=== PATIENT | male | born 1945 | race Caucasian/White ===

== ENCOUNTER 2018-10-29 06:08 | Day surgery (SDC) | payer OTHER ==
[2018-10-28 16:22] VITALS: BMI 27.9
[2018-10-29] MEDS ORDERED: MIDAZOLAM HCL 2 MG/2 ML SINGLE DOSE VIAL ONE ×2 (06:55→08:35)
[2018-10-29] MEDS ORDERED: PROPOFOL 20 ML ONE ×5 (06:56→09:35)
[2018-10-29] MEDS ORDERED: SUCCINYLCHOLINE CHLORIDE 200 MG/10 ML VIAL ONE (07:04)
[2018-10-29] MEDS ORDERED: LIDOCAINE HCL/PF 2% SDV 5ML VIAL ONE ×2 (07:05→09:05)
[2018-10-29] MEDS ORDERED: SEVOFLURANE 250 ML BTL ONE (07:08)
[2018-10-29] MEDS ORDERED: DESFLURANE GAS 240 ML BOTTLE IH ONE (07:08)
[2018-10-29] MEDS ORDERED: TETRACAINE 0.5% OPHTH SOLN 2 ML BOTTLE ONE (07:20)
[2018-10-29] MEDS ORDERED: POVIDONE-IODINE 5% OPHTHALMIC PREP 30 ML SOLUTION ONE (07:20)
[2018-10-29] MEDS ORDERED: ERYTHROMYCIN 0.5% OPHTHALMIC OINTMENT 3.5 GM TUBE ONE (07:20)
[2018-10-29] MEDS ORDERED: LIDOCAINE 1%/EPI 1:100000 (20 ML MULTI DOSE VIAL) ONE (07:21)
[2018-10-29] MEDS ORDERED: BUPIVACAINE HCL/PF 0.5% (5MG/ML) 10 ML VIAL ONE (07:21)
[2018-10-29] MEDS ORDERED: oxyCODONE HCL 5 MG TABLET PO PRN ×2 (07:24)
[2018-10-29] MEDS ORDERED: ONDANSETRON 4 MG/2 ML VIAL IVPUSH PRN (07:24)
[2018-10-29] MEDS ORDERED: LACTATED RINGERS SOLUTION 1,000 ML IV SCH (07:30)
[2018-10-29] MEDS ORDERED: ceFAZolin SODIUM 1 GM VIAL ONE (08:00)
[2018-10-29] MEDS ORDERED: GLYCOPYRROLATE 0.2 MG/1 ML VIAL ONE (09:06)
[2018-10-29] MEDS ORDERED: PHENYLEPHRINE HCL 10 MG/1 ML SINGLE DOSE VIAL ONE (09:14)
[2018-10-29] MEDS ORDERED: oxyCODONE HCL 5 MG TABLET ONE (11:21)
[2018-10-29 11:29] VITALS: TEMP 98
[2018-10-29 12:30] VITALS: BP 132/78; PULSE 72
--- NOTE | 2018-10-29 13:34 | OP ---
DATE OF OPERATION: 10/29/2018 PREOPERATIVE DIAGNOSIS: Extensive defect left lower lid full thickness status post basal cell carcinoma excision. POSTOPERATIVE DIAGNOSIS: Extensive defect left lower lid full thickness status post basal cell carcinoma excision. Defect extending to and beyond the lateral canthus. PROCEDURES: 1. Exam under anesthesia. 2. Full-thickness tarsal graft from right upper lid to left lower lid. 3. Conjunctivoplasty left inferior fornix. 4. Full-thickness skin graft from the left postauricular region to the left lower lid. SURGEON: Mark Bansal MD ANESTHESIA: Local with sedation. COMPLICATIONS: None. ESTIMATED BLOOD LOSS: 5 mL. OPERATIVE REPORT: The patient was brought to the operating room and placed on the operating room table. Vital signs were monitored by Anthesthesia. Tetracaine was placed in both eyes. The wound was photographed following which the width of the defect was measured and found to be about 23 mm full thickness involving the margin leaving perhaps a 25% remnant in the left lower lid nasally with some irregularity. The patient was then given intravenous sedation after a time-out was performed, and a 50/50 mixture of 2% Xylocaine and 1:100,000 epinephrine and 0.5% Marcaine was injected subcutaneously in the lower lid down to the periosteum at the lateral canthus where the lateral canthus used to be, the nasal portion of the lower lid, the central portion of the upper lid subcutaneously and subconjunctivally on eversion, and the central portion of the right upper lid subcutaneously and subconjunctivally on eversion. Massage was gently applied for hemostasis. The patient was prepped and draped in the usual sterile fashion exposing both eyes. The following procedure was performed: The nasal portion of the eyelid was distracted laterally to measure the full width of the defect from the nasal eyelid to the periosteum was found to be 23 mm with caliper. A 4-0 silk tracking suture was passed from the central margin of the right upper lid and the lid was everted over Desmarres retractor and leaving 4 mm of intact tarsus throughout the eyelid. The 4 mm width of tarsus was then harvested for a width of 23 mm. This was dissected meticulously off of Cardozo muscle leaving Cardozo muscle intact, and it was removed from the right upper lid. The right upper lid was reverted. Incision was made through the nasal remnant of the left lower lid to para tarsus leaving all of the lashes anteriorly. The free tarsal graft, which was irrigated with antibiotics was then placed into the defect into the left lower lid where it was sutured with the conjunctival surface facing posteriorly against the globe to the nasal remnant of the left lower lid tarsus with 3 interrupted 7-0 Vicryl sutures creating a continuous posterior tarsal lamella. The conjunctiva was now dissected free of its overlying tissue and retractors and was allowed to mobilized, and this was meticulously sutured to the inferior edge of the conjunctiva with a running 6-0 chromic suture. Attempts were made to maximize blood supply to the free tarsal graft by attaching it with close sutures without undue tension. The temporal end of the graft was now sutured to the lateral lobe of the limb at the junction with the superior jackie of the lateral canthal tendon with a double-armed 5-0 Prolene passed through the temporal end of the tarsal graft and through the internal surface of the orbital rim. This was reinforced with two 6-0 Vicryl lasso sutures. The lateral canthal angle was reformed with a buried 7-0 Vicryl suture through the wound and laguerre line of the upper lid and then through the tarsus on its marginal edge and through the end of the tarsus of the tarsal graft, and this was tied creating a new lateral canthus. The Prolene was subsequently tied creating a new attachment to the orbital rim, and the graft template was then placed over this defect. The orbicularis skin muscle flap was contemplated; however, it was felt that there would be undue tension on the graft and, therefore, a template was placed over the defect in the left lower lid to measure the size of the graft needed. The helix of the left ear was then sutured to the preauricular skin with two interrupted 4-0 Vicryl sutures, and the graft was then placed over the postauricular reflection and marked with a marking pen using the template as a guide with the thinner anterior post auricular skin being used to align with the marginal skin edge. The graft site was injected with 2% Xylocaine and 1:100,000 epinephrine for a total of 2-3 mL and then harvested with a 15 blade in the perimeter and with Cathie scissors just underneath the dermis. Hemostasis was achieved with [place] needle, and the wound was closed with running, locking 3-0 chromic suture augmented with interrupted 3-0 chromic suture. The graft was then thinned of all subcutaneous tissue to help with the skin graft until ready tags were identified, and it was with an 11 blade. It was then sutured as the anterior lamella of the newly created left lower lid with the thin postauricular skin facing superiorly. It was meticulously tailored and sutured nasally and temporally with 7-0 Vicryl with 6-0 plain suture to repair at the lateral canthus and the medial attachment. The lobe inferiorly would be left free in the moment. The superior edge of the graft was sutured to the superior edge of the free tarsal graft recessing it slightly as it was sutured to prevent the skin from overriding at the margin, and this was run with a 6-0 chromic suture through the graft and then through the anterior surface of the tarsal graft exiting on the edge of the free tarsal graft not on the posterior surface throughout in a running fashion reattaching the superior edge and recreating the new lid margin. The graft was then trimmed as needed inferiorly conservatively leaving excess graft expecting contraction, and it was sutured to the inferior skin edge with plastic technique using a running and interrupted 6-0 plain suture. Erythromycin was placed in the eye and on the graft site and on the lateral canthus and in the right eye after antibiotic irrigation was performed and then a strip of Telfa over the dental roll tied over with a 4-0 silk suture in a loop fashion, which was passed below the graft laterally in the lateral lower lid and through the dental roll and then through the lateral upper lid and another bite through the lateral upper lid and then over the graft again over the dental roll again and down through the lower lid in a loop fashion creating gentle pressure from the dental roll on the graft overlying the reconstructed lid. A strip of Telfa and eye patch and fluff were placed over the eye to maintain gentle pressure on the graft. Erythromycin ointment had been placed in the right eye, and Xeroform and gauze were placed behind the left ear. The helix sutures were removed, and the patient was taken to the recovery area in stable condition. Gabo [id number]
== END 2018-10-29 12:15 | disposition home or self-care (01) ==
LOC: FASU 06:08
PROVIDERS: ATTEND Ophthalmology
PROC: 0HB3XZZ Excision of Left Ear Skin, External Approach (ICD-10-PCS; 2018-10-29)
PROC: 0HR1X73 Replacement of Face Skin with Autologous Tissue Substitute, Full Thickness, External Approach (ICD-10-PCS; 2018-10-29)
PROC: 08RRX7Z Replacement of Left Lower Eyelid with Autologous Tissue Substitute, External Approach (ICD-10-PCS; principal; 2018-10-29 08:20)
DX: C44.1192 Basal cell carcinoma of skin of left lower eyelid, including canthus (principal)
CPT/HCPCS: 94760